=== PATIENT | female | born 1955 | race African-American/Black ===

== ENCOUNTER 2016-12-21 10:56 | Observation (INO) ==
[2016-12-21] MEDS ORDERED: SODIUM CHLORIDE 0.9% 1,000 ML IV STA (12:01)
--- NOTE | 2016-12-21 12:05 | EKG Report ---
Stationary ECG Study [facility] ER Test Date: 12/21/2016 11:22:18 AM Pat Name: NELLIE LEMONS Department: Room: Gender: F Electronic Wirer: Ally Smalls : 1955 Requested by: Kameron Healy Order Number: [id number] Reading MD: NOEMI NEVAREZ Intervals [place] Rate: 107 P: 70 NC: 176 QRS: 71 QRSD: 98 T: 28 QT: 339 QTc: 402 Interpretive Statements SINUS TACHYCARDIA NONSPECIFIC T WAVE ABNORMALITY Electronically Signed On 12-21-16 13:02:33 ACAD[employer]IC VICE PRESIDENT by NOEMI NEVAREZ [email or web address]
--- NOTE | 2016-12-21 12:13 | Emergency Department Note ---
Pranav Dickson Meredith, am scribing for, and in the presence of, Kameron Carr MD 12: 03. Lilly Dickson James D, MD, personally performed the services described in this documentation, ascribed by Rosy Rock in my presence, and it is both accurate and complete . Arrival - Arrival Chief Complaint: Syncope Stated Complaint: NEAR SYNCOPAL EPISODE ED Nursing Triage Note: reports had a syncopal episode in dr flynn office this am and was brought over here. reports fell on monday.reports some pain in right shoulder and top of head. Mode of Arrival: Wheelchair Limitations: No Limitations Source: Patient, Old Records Reviewed, RN Notes Reviewed Time Seen by Provider: 12/21/16 12:00 - History of Present Illness HPI Narrative: Pt is a 61 y/o black female reporting to the ED with c/o syncopal episode in Dr. Flynn's office this morning. She had another syncopal episode 3 days ago. Pt denies felling anything abnormal before the episode. She denies any chest pain, palpitations, shortness of breath, nausea, or vomiting. Pt does have some right shoulder pain and pain to the top of the head. She has a history of HTN, anxiety, depression, CVA, seizures, NIDDM, hemorrhoids, GERD, and anemia. Patient's son is concerned that she may be somewhat overmedicated. Onset (ago): hour(s) Consistency: now resolved Allergies/Adverse Reactions: Allergies Allergy/AdvReac Type Severity Reaction Status Date / Time iodine Allergy Mild RASH Verified 12/28/15 07:05 Home Medications: Home Medications Medication Instructions Recorded Confirmed Type Benztropine Tab [Cogentin Tab] 2 mg PO DAILY 12/16/15 02/01/16 History Diclofenac Sodium 75 mg PO DAILY 12/16/15 02/01/16 History Furosemide 20 mg PO DAILY 12/16/15 02/01/16 History Glimepiride [Amaryl] 4 mg PO DAILY W/BREAKFAST 12/16/15 02/01/16 History Magnesium Chloride [Slow Mag] 64 mg PO DAILY 12/16/15 02/01/16 History NIFEdipine XL TAB [Procardia Xl] 120 mg PO DAILY 12/16/15 02/01/16 History Sertraline [Zoloft] 100 mg PO DAILY 12/16/15 02/01/16 History clonazePAM [Klonopin] 1 mg PO DAILY 12/16/15 02/01/16 History glyBURIDE/METFORMIN 5-500 2 tablet PO BID 12/16/15 02/01/16 History [Glucovance 5-500] lamoTRIgine [LaMICtal Tab] 150 mg PO DAILY 12/16/15 02/01/16 History risperiDONE [Risperdal] 2 mg PO DAILY 12/16/15 02/01/16 History Ibuprofen Tab [Motrin Tab] 800 mg PO TID #20 tablet 10/30/16 Rx Review of System - Review of System 12 point system: reviewed and no additional remarkable complaints except as stated - Review of System Respiratory: Present: as per HPI. Absent: respiratory distress Cardiovascular: Present: as per HPI, syncope. Absent: chest pain, palpitations Gastrointestinal: Present: as per HPI. Absent: nausea, vomiting Musculoskeletal: Present: as per HPI, other (right shoulder pain and pain to the top of the head) Medical,Surgical,& Family Hx - Medical History Cardio: History of: Hypertension Psychological: History of: Anxiety Disorders, Depression Neurology: History of: Cerebrovascular Accident, Seizures HEENT: History of: Eye Problem (Reading Glasses/Cataracts), Dental Problems ( Partial Lower/Full Upper) Endocrine: History of: Diabetes Mellitus (NIDDM) Respiratory: History of: Respiratory Problems (SOB Occasionally; No Flu Vac- never has had) Gastrointestinal: History of: GERD, Hemorrhoids, GI Problems (Constipation) No history of: Polyps (?) Musculoskeletal: History of: Musculoskeletal Problems (Arthritis) Hematology: History of: Anemia (Years Ago) No history of: Blood Transfusion Reaction (With Childbirths) Other: No history of: Anesthesia Reactions, Cancer - Surgical History Cardiac Surgeries: Sugical HX of: Cardiac Catheterization (Negative) Neurologic Surgeries: Surgical HX of: Neurologic Surgery (Brain Tumor Removed 1996) HEENT Surgeries: Surgical HX of: Eye Surgery (12/28/15 Cataract Rt; 02/01/[address] Ren) Abdominal Surgeries: Surgical HX of: Abdominal Surgery, Colonoscopy Reproductive Surgeries: Surgical HX of;: Section (x3), Gynecologic Surgery Orthopedic Surgeries: Surgical HX of;: Orthopedic Surgery (CTR Rt/Lt) - Family History Family History: Denies;: Additional Family History - Social History Smoking Status: Smoker, status unknown Exam Physical Examination: GENERAL: This is a well-nourished, well-developed black female in no apparent distress. VITAL SIGNS: Temperature: 97.2, Pulse: 117, Respirations: 18, Blood pressure: 136/78, O2 Saturation: 98 HEENT: Head is normocephalic and atraumatic. Pupils are equally round and reactive to light. Extraocular movement are intact. Dry mucous membranes. NECK: Neck is soft and supple without tenderness. There are no masses. There is no lymphadenopathy. LUNGS: Lungs are clear to auscultation bilaterally. Chest rises symmetrically. There is no chest wall tenderness. CV: Heart is tachycardic and regular rhythm without murmurs, rubs, or gallops. ABDOMEN: Abdomen is soft, non-tender to palpation. There are no abnormal masses palpated. There is no organomegaly. Bowel sounds are present and active. SKIN: Skin is warm and dry. No rash. EXTREMITIES: Patient has full range of motion without tenderness. There is no pedal edema. NEUROLOGIC: Awake, alert, and oriented x4. Cranial nerves II through XII are grossly intact. There are no motorsensory deficits. PSYCHIATRIC: Normal affect. Normal mood. Vital Signs: Vital Signs Temperature 97.2 F L 12/21/16 11:10 Pulse Rate 102 H 12/21/16 12:50 Respiratory Rate 18 12/21/16 11:10 Blood Pressure 183/86 12/21/16 12:50 O2 Sat by Pulse Oximetry 98 12/21/16 11:10 Course - Consultations Consultation #1: Discussed with hospitalist. Patient will be admitted to their service. Time: 13:53 Results - Labs CBC & BMP: 12/21/16 12:42 12/21/16 12:42 Lab Results: I have reviewed the patients labs Labs: Laboratory Tests 12/21/16 12:42 WBC 7.8 RBC 3.91 Hgb 10.2 L Hct 32.6 L MCV 83.4 L MCH 26 L MCHC 31.3 L Plt Count 387 MPV 9.2 L Baso % (Auto) 0.9 H Laboratory Tests 12/21/16 12/21/16 12:42 12:58 INR 1.1 PT Patient/Control Mix 12.0 POC Glucose 222 H Laboratory Tests 12/21/16 12:42 Sodium 145 Potassium 4.2 Chloride 112 H Carbon Dioxide 21 Anion Gap 16.2 H BUN 21 H Creatinine 1.30 H Glucose 224 H Magnesium 1.7 L Troponin I < 0.015 Globulin 3.8 H Albumin/Globulin Ratio 0.9 L Laboratory Tests 12/21/16 12:42 Urine pH 5.0 Ur Specific [place] 1.020 Urine Protein 30 Urine Glucose (UA) >=500 Urine Urobilinogen < 2.0 H Urine RBC <1 Urine WBC <1 Ur Squamous Epith Cells Occasional Urine Bacteria Occasional Hyaline Casts 2 Urine Mucus Occasional - EKG EKG results: interpreted by ERMD - Diagnostic Findings Procedure: Chest x-ray: image reviewed by me (Normal chest x-ray. ), CT: report reviewed by me (CT head: No acute intracranial abnormality demonstrated. Chronic findings. ; C-spine: No convincing CT evidence of acute injury involving miladys osseous cervical spine. Degenerative chagne and malalignment or the cervical spine. ) Disposition Clinical Impression: Syncope Case discussed with: patient Disposition: Still a Patient Condition: Stable
--- NOTE | 2016-12-21 12:45 | CT Report ---
CT head/brain wo con Indication: Syncope Comparison: CT brain dated August 14, 2013 Technique: Multiple axial tomographic images of the brain were obtained without the use of intravenous contrast. Findings: Midline structures are nondisplaced. There is no acute intracranial hemorrhage or evidence of hydrocephalus. Moderate cystic encephalomalacia again demonstrated along the inferolateral right temporal lobe, unchanged. Suggestion of prior right frontotemporal craniotomy. Senescent mineralization of the basal ganglia. Mild periventricular and subcortical hypoattenuation noted which is nonspecific but consistent with chronic microvascular ischemic change. Paranasal sinuses and mastoid air cells are clear. IMPRESSION: No acute intracranial abnormality demonstrated. Chronic findings as detailed above. PROCEDURE INTERPRETED AT [facility] DEPARTMENT OF RADIOLOGY Final Report Signed by: Dr Varinder Paulino
[2016-12-21 12:50] LABS: Basophils # 0.1 10*3/uL (0.0-0.2); Basophils % 0.9 % (0.0-0.8); Eosinophils # 0.2 10*3/uL (0.0-0.87); Eosinophils % 2.6 % (0.00-10.9); Hematocrit 32.6 VOL% (35.7-47.0); Hemoglobin 10.2 GM/DL (12.0-16.0); Immature Granulocytes % 0.5 %; Immature Granulocytes Absolute 0.04 #; Lymphocytes # 2.3 10*3/uL (1.4-4.0); Lymphocytes % 29.9 % (21.3-54.2); Mean Corpuscular HGB Conc 31.3 GM/DL (32-36); Mean Corpuscular Hemoglobin 26 PG (27-34); Mean Corpuscular Volume 83.4 FL (87-102); Mean Platelet Volume 9.2 FL (9.6-12.0); Monocytes # 0.5 10*3/uL (0.11-0.8); Monocytes % 5.8 % (1.7-12.7); Neutrophils # 4.7 10*3/uL (1.4-7.4); Neutrophils % 60.3 % (38.7-73.9); Platelet Count 387 T/CUMM (130-400); Red Blood Count 3.91 MC/CUMM (3.8-5.5); Red Cell Distribution Width 15.4 % (9.3-17.3); White Blood Count 7.8 T/CUMM (4-12)
--- NOTE | 2016-12-21 12:50 | CT Report ---
CT cervical spine wo con Indication: Syncope Comparison: None Technique: Multiple axial tomographic images of the cervical spine were obtained without the use of intravenous contrast. Coronal and sagittal reformatted images provided. Findings: Straightening of normal cervical lordosis which may be positional or secondary to muscle spasm. 2 mm anterolisthesis of C3 upon C4 and C4 upon C5. Multilevel posterior facet arthropathy, greatest on the right at C4-5 where there is subchondral cystic change. Multilevel uncovertebral joint hypertrophy. Vertebral body heights are maintained. Atherosclerotic chronic calcifications noted bilaterally. IMPRESSION: No convincing CT evidence of acute injury involving the osseous cervical spine. Degenerative change and malalignment of the cervical spine as detailed above. PROCEDURE INTERPRETED AT [facility] DEPARTMENT OF RADIOLOGY Final Report Signed by: Dr Varinder Paulino
[2016-12-21 13:00] LABS: INR 1.1
--- NOTE | 2016-12-21 13:31 | XRay Report ---
XR chest 1V portable Indication: Syncope Comparison: None available Findings: The heart and mediastinum are normal in size and configuration. The pulmonary vascularity is normal in caliber. No lung infiltrates, effusions, pneumothorax or other abnormality is demonstrated. Impression: Normal chest x-ray PROCEDURE INTERPRETED AT [facility] DEPARTMENT OF RADIOLOGY Final Report Signed by: Dr. Cruz Gomez
[2016-12-21 13:32] LABS: Alanine Aminotransferase 15 U/L (13-56); Albumin 3.5 G/DL (3.4-5.0); Alkaline Phosphatase 99 U/L (45-117); Apearance,Urine Slightly Hazy (Clear); Aspartate Amino Transferase 7 U/L (0-37); Bacteria,Urine Occasional /HPF (Few); Bilirubin,Total < 0.39 MG/DL (0.2-1.0); Bilirubin,Urine Negative (Negative); Blood Urea Nitrogen 21 MG/DL (7-18); Blood, Urine Negative (Negative); Calcium 9.6 MG/DL (8.5-10.1); Glucose 224 MG/DL (74-106); Glucose,Urine (UA) >=500 mg/dL (Negative); Hyaline Casts,Urine 2 /LPF (0-3); Ketones,Urine Negative (Negative); Magnesium 1.7 MG/DL (1.8-2.4); Mucus,Urine Occasional /LPF (Occasional); Nitrite,Urine Negative (Negative); Osmolality,Calculated 297.7 MOS/KG (273-304); Potassium 4.2 MMOL/L (3.5-5.1); Protein,Urine 30 MG/DL; RBC,Urine <1 /HPF (0-4); Sodium 145 MMOL/L (136-145); Squamous Epithelial Cell,Urine Occasional /HPF (0-10); Total Protein 7.3 G/DL (6.4-8.3); Troponin I Only < 0.015 NG/ML (0.00-0.045); Urine Color Yellow (Yellow); Urine Urobilinogen < 2.0 EU/DL (0.2-1.0); WBC,Urine <1 /HPF (0-6)
[2016-12-21] MEDS ORDERED: ONDANSETRON 4 MG/2 ML VIAL IV PRN (14:08)
[2016-12-21] MEDS ORDERED: GLUCAGON 1 MG VIAL IM PRN (14:08)
[2016-12-21] MEDS ORDERED: DEXTROSE 50% 25 GM/50 ML VIAL IV PRN (14:08)
[2016-12-21] MEDS ORDERED: LACTULOSE 20 GM/30 ML UDCUP PO PRN (14:08)
[2016-12-21] MEDS ORDERED: MORPHINE 2 MG/1 ML SYRINGE IV PRN (14:08)
[2016-12-21] MEDS ORDERED: ACETAMINOPHEN 325 MG TABLET PO PRN (14:08)
--- NOTE | 2016-12-21 14:57 | Hospitalist History & Physical ---
Assessment and Plan - Time spent with patient Time spent with patient: Greater than 30 minutes (1) Syncope Status: Acute Assessment and plan: admit to monitored bed hydrate well check TSH cardiology consult orthostatic vitals daily monitor electrolytes thoroughly evaluate pt's medication and continue discussion on medication compliance- defer med rec to Dr. Sanderson PRN meds routine labs in AM DVT prophylaxis further plan and addendum to follow per Dr. Sanderson Current Visit: Yes History of Present Illness Chief complaint: syncope History of present illness: Ms. Kasper is a 61 year old female who presents to the ER today from Dr. Flynn's office. She tells me that she made an appointment with Dr. Flynn after she had a "fall" on Monday. 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 She denies having any chest pain, shortness of breath, palpitations, dizziness, lightheadedness, nausea or pain prior too or after the fall. 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 She denies recent illness, denies any recent chest pain or shortness of breath. She went to Dr. Winslow today and was in the waiting room when she tells me that she had another fall that was exactly like the episode on Monday. She was brought to the ER. After speaking with staff at Dr. Flynn's office, her episode was unwitnessed with staff and it is unclear whether vitals were done or not. She states she feels well at present. Pt is being managed by Orthopedics for problems with her knees and is to have a knee replacement, she also sees pain management for her knees and back. She says it is possible that her knees went out from under her but she cant remember. Pt also tells us that she missed breakfast and her home meds the mornings of both episodes. Her son is at bedside and is very thorough. he states that she has had a several month history of medication and diet non compliance, seeing several doctors and altering her own prescription meds. Ms. Styles has a PMH of HTN, anxiety, depression, CVA, seizures, DM, hemorrhoids , GERD, and anemia. PSH of bilat knee scopes, cardiac cath, brain tumor removed in , cataracts, . She does not smoke or drink. Home Medications Medication Instructions Recorded Confirmed Type Benztropine Tab [Cogentin Tab] 2 mg PO DAILY 12/16/15 12/21/16 History Diclofenac Sodium 75 mg PO DAILY 12/16/15 12/21/16 History Furosemide 20 mg PO DAILY 12/16/15 12/21/16 History Sertraline [Zoloft] 150 mg PO DAILY 12/16/15 12/21/16 History clonazePAM [Klonopin] 1 mg PO QPM 12/16/15 12/21/16 History glyBURIDE/METFORMIN 5-500 2 tablet PO BID 12/16/15 12/21/16 History [Glucovance 5-500] lamoTRIgine [LaMICtal Tab] 150 mg PO DAILY 12/16/15 12/21/16 History Metoprolol Succinate Xl [Toprol Xl] 100 mg PO DAILY 12/21/16 12/21/16 History Nifedipine [Nifedical Xl] 60 mg PO DAILY 12/21/16 12/21/16 History Nifedipine [Nifedipine ER] 90 mg PO DAILY 12/21/16 12/21/16 History Nortriptyline [Pamelor] 50 mg PO DAILY 12/21/16 12/21/16 History OLANZapine [Olanzapine] 15 mg PO DAILY 12/21/16 12/21/16 History risperiDONE [Risperidone] 2 mg PO BEDTIME 12/21/16 12/21/16 History sitaGLIPtin [Januvia] 100 mg PO DAILY 12/21/16 12/21/16 History Allergies Allergy/AdvReac Type Severity Reaction Status Date / Time iodine Allergy Mild RASH Verified 12/28/15 07:05 Medical,Surgical,& Family Hx - Medical History Cardio: History of: Hypertension Psychological: History of: Anxiety Disorders, Depression Neurology: History of: Cerebrovascular Accident, Seizures HEENT: History of: Eye Problem (Reading Glasses/Cataracts), Dental Problems ( Partial Lower/Full Upper) Endocrine: History of: Diabetes Mellitus (NIDDM) Respiratory: History of: Respiratory Problems (SOB Occasionally; No Flu Vac- never has had) Gastrointestinal: History of: GERD, Hemorrhoids, GI Problems (Constipation) No history of: Polyps (?) Musculoskeletal: History of: Musculoskeletal Problems (Arthritis) Hematology: History of: Anemia (Years Ago) No history of: Blood Transfusion Reaction (With Childbirths) Other: No history of: Anesthesia Reactions, Cancer - Surgical History Cardiac Surgeries: Sugical HX of: Cardiac Catheterization (Negative) Neurologic Surgeries: Surgical HX of: Neurologic Surgery (Brain Tumor Removed 1996) HEENT Surgeries: Surgical HX of: Eye Surgery (12/28/15 Cataract Rt; 02/01/[address] Ren) Abdominal Surgeries: Surgical HX of: Abdominal Surgery, Colonoscopy Reproductive Surgeries: Surgical HX of;: Section (x3), Gynecologic Surgery Orthopedic Surgeries: Surgical HX of;: Orthopedic Surgery (CTR Rt/Lt) - Family History Family History: Denies;: Additional Family History - Social History Smoking Status: Former smoker Frequency of Alcohol Use: None Type of Drug Use: None Marital Status: Lives With:: Spouse Functional capacity: independent ambulation 12 point system: reviewed and no additional remarkable complaints except as stated Exam - Constitutional Vitals: Period Temp Pulse Resp BP Sys/Coello Pulse Ox Last 24 Hr 97.2 F-97.2 F 100-117 18-20 136-183/78-96 98-100 General appearance: no acute distress - Head Head exam: Present: normal inspection, normocephalic - Eye Eye exam: Present: EOMI. Absent: scleral icterus Pupils: Present: MARIE, normal accommodation - ENT ENT exam: Present: normal exam, normal oropharynx - Neck Neck exam: Present: normal inspection. Absent: lymphadenopathy - Respiratory Respiratory exam: Present: clear to auscultation bilaterally. Absent: wheezes - Cardiovascular Cardiovascular exam: Present: regular rate and rhythm. Absent: tachycardia - GI/Abdominal GI/Abdominal exam: Present: normal bowel sounds, soft. Absent: tenderness - Extremities Exam Extremities exam: Present: normal inspection, full ROM. Absent: edema - Back Exam Back exam: Present: normal inspection. Absent: muscle spasm - Neurological Exam Neurological exam: Present: alert, oriented X3, CN II-XII intact, reflexes normal, other (pt has some delayed thinking and response time). Absent: motor sensory deficit - Psychiatric Psychiatric exam: Present: normal affect, normal mood - Skin Skin exam: Present: normal color, warm, dry Results - Labs CBC & BMP: 12/21/16 12:42 12/21/16 12:42 Lab Results: I have reviewed the past 24 hour labs
[2016-12-21] MEDS ORDERED: hydrALAZINE 20 MG/1 ML VIAL IV PRN (15:02)
[2016-12-21 16:30] LABS: Folate > 24.0 NG/ML (5.4-24.0); Vitamin B12 766 PG/ML (211-911)
[2016-12-21 16:41] LABS: Basophils # 0.1 10*3/uL (0.0-0.2); Basophils % 0.6 % (0.0-0.8); Eosinophils # 0.2 10*3/uL (0.0-0.87); Eosinophils % 2.4 % (0.00-10.9); Hemoglobin 9.5 GM/DL (12.0-16.0); Immature Granulocytes % 0.2 %; Immature Granulocytes Absolute 0.02 #; Lymphocytes # 2.8 10*3/uL (1.4-4.0); Mean Corpuscular HGB Conc 31.7 GM/DL (32-36); Mean Corpuscular Hemoglobin 26 PG (27-34); Mean Platelet Volume 9.3 FL (9.6-12.0); Monocytes # 0.5 10*3/uL (0.11-0.8); Monocytes % 6.4 % (1.7-12.7); Neutrophils # 4.5 10*3/uL (1.4-7.4); Neutrophils % 55.4 % (38.7-73.9); Platelet Count 379 T/CUMM (130-400); Red Blood Count 3.66 MC/CUMM (3.8-5.5); Red Cell Distribution Width 15.4 % (9.3-17.3); White Blood Count 8.1 T/CUMM (4-12)
[2016-12-21] MEDS ORDERED: MAGNESIUM SULF RIDER 1 GM in PREMIX 1 EACH IV ONE (17:00)
[2016-12-21] MEDS: SODIUM CHLORIDE 0.9% 1,000 ML IV SCH (17:25)
[2016-12-21] MEDS: INSULIN LISPRO 100 UNIT/ML SUBCUT SCH ×2 (17:26→22:23)
[2016-12-21 17:45] LABS: Sedimentation Rate-Westergren 77 MM/HR (0-30)
[2016-12-21] MEDS ORDERED: clonazePAM 0.5 MG TABLET PO SCH (19:00)
[2016-12-21] MEDS ORDERED: ENOXAPARIN 40 MG/0.4 ML SYRINGE SUBCUT SCH (21:00)
[2016-12-21] MEDS ORDERED: METOPROLOL TARTRATE 25 MG TABLET PO SCH (21:00)
[2016-12-21] MEDS: glyBURIDE/METFORMIN 5-500 MG TABLET PO SCH (22:21)
[2016-12-22 06:54] LABS: Basophils # 0.1 10*3/uL (0.0-0.2); Basophils % 0.7 % (0.0-0.8); Eosinophils # 0.2 10*3/uL (0.0-0.87); Eosinophils % 2.5 % (0.00-10.9); Hematocrit 30.6 VOL% (35.7-47.0); Hemoglobin 9.6 GM/DL (12.0-16.0); Immature Granulocytes % 0.2 %; Immature Granulocytes Absolute 0.02 #; Lymphocytes # 2.5 10*3/uL (1.4-4.0); Mean Corpuscular HGB Conc 31.4 GM/DL (32-36); Mean Corpuscular Hemoglobin 26 PG (27-34); Mean Corpuscular Volume 81.6 FL (87-102); Mean Platelet Volume 9.5 FL (9.6-12.0); Monocytes # 0.5 10*3/uL (0.11-0.8); Monocytes % 5.9 % (1.7-12.7); Neutrophils # 4.8 10*3/uL (1.4-7.4); Neutrophils % 59.7 % (38.7-73.9); Platelet Count 399 T/CUMM (130-400); Red Blood Count 3.75 MC/CUMM (3.8-5.5); Red Cell Distribution Width 15.5 % (9.3-17.3)
[2016-12-22 07:14] LABS: Hemoglobin A1 (Alkaline) 97.5 % (96.5-98.5); Hemoglobin A2 (Alkaline) 2.5 % (1.5-3.5)
[2016-12-22] MEDS: SODIUM CHLORIDE 0.9% 1,000 ML IV SCH (07:17)
[2016-12-22 07:23] LABS: Albumin 3.2 G/DL (3.4-5.0); Bilirubin,Total 0.4 MG/DL (0.2-1.0); Calcium 9.1 MG/DL (8.5-10.1); Potassium 4.2 MMOL/L (3.5-5.1)
[2016-12-22] MEDS ORDERED: glyBURIDE/METFORMIN 5-500 MG TABLET PO SCH (08:00)
[2016-12-22] MEDS ORDERED: METOPROLOL SUCCINATE XL 100 MG TABLET PO SCH (09:00)
[2016-12-22] MEDS ORDERED: FUROSEMIDE 20 MG TABLET PO SCH (09:00)
[2016-12-22] MEDS ORDERED: PANTOPRAZOLE 40 MG TABLET PO SCH (09:00)
[2016-12-22] MEDS ORDERED: METOPROLOL SUCCINATE XL 50 MG TABLET PO SCH (09:00)
[2016-12-22] MEDS ORDERED: SERTRALINE 100 MG TABLET PO SCH (09:00)
[2016-12-22] MEDS ORDERED: amLODIPine 10 MG TABLET PO SCH (09:00)
[2016-12-22] MEDS ORDERED: lamoTRIgine 100 MG TABLET PO SCH (09:00)
[2016-12-22] MEDS ORDERED: BENZTROPINE 1 MG TABLET PO SCH (09:00)
[2016-12-22] MEDS ORDERED: sitaGLIPtin 100 MG TABLET PO SCH (09:00)
[2016-12-22] MEDS: INSULIN LISPRO 100 UNIT/ML SUBCUT SCH ×3 (09:06→16:03)
[2016-12-22] MEDS: glyBURIDE/METFORMIN 5-500 MG TABLET PO SCH (09:08)
--- NOTE | 2016-12-22 16:12 | Discharge Summary ---
Hospital Course - Hospital Course Hospital Course: Mrs Kasper came with a fall at DR Flynn's office. She was monitored and had no arrhythmia. She was not orthostatic. Her neuro exam was normal other than lip/tongue smacking that has been present for several years. She denied hearing voices at this time, (though she was when she saw Dr Flynn in November- he increased her risperdal), and denied depressed mood. Her medicine list was long and there were many duplicates. Her son is going to straighten it out. She has a very concerned son who wants her to move to to [place] with him but she is resistant. She is very noncompliant with her meds which she admits. She has arthritis in her knees and falls related to that. Dr Garcia did not feel further cardiology eval was warranted at this time, and recommends that she see a psychiatrist for ehr schizophrenia since she hasn't seen one in 3 years. She will see her PCp and counselor/psychiatrist in follow up. She plans to move to [place] in 2 weeks. - Time spent with patient Time with patient DS: Greater than 30 minutes (care coordination, discharge planning, medicine reconciliation.) Diagnosis - Discharge Diagnosis (1) Fall Status: Acute (2) Diabetes mellitus Status: Chronic (3) GERD (gastroesophageal reflux disease) Status: Chronic (4) History of seizures Status: Chronic (5) Hypertension Status: Chronic (6) Medically noncompliant Status: Chronic (7) Schizophrenia Status: Chronic Specialty Discharge - Follow Up or Referrals Follow up with: Karthikeyan Alamo MD [Physician] - 2 Weeks (Follow up with Dr. Alamo in 2 weeks. ) Your, psychiatrist [Other] (1 week) Woodrow Flynn MD [Physician] - 5 Days Discharge Plan - Discharge Data Disposition: Home Health Service Condition at Discharge: Stable Discharge Diet: diabetic diet, heart healthy Activity: resume usual activities as tolerated - Discharge Medications Continue Sertraline [Zoloft] 150 mg PO DAILY Furosemide 20 mg PO DAILY Diclofenac Sodium 75 mg PO DAILY glyBURIDE/METFORMIN 5-500 [Glucovance 5-500] 2 tablet PO BID lamoTRIgine [LaMICtal Tab] 150 mg PO DAILY clonazePAM [Klonopin] 1 mg PO QPM Benztropine Tab [Cogentin Tab] 2 mg PO DAILY Nifedipine [Nifedical Xl] 60 mg PO DAILY risperiDONE [Risperidone] 2 mg PO BEDTIME Metoprolol Succinate Xl [Toprol Xl] 100 mg PO DAILY Discontinued Nortriptyline [Pamelor] 50 mg PO DAILY OLANZapine [Olanzapine] 15 mg PO DAILY sitaGLIPtin [Januvia] 100 mg PO DAILY Nifedipine [Nifedipine ER] 90 mg PO DAILY - Follow Up or Referral Follow Up: Your, psychiatrist [Other] (1 week) Woodrow Flynn MD [Physician] - 5 Days Karthikeyan Alamo MD [Physician] - 2 Weeks (Follow up with Dr. Alamo in 2 weeks. ) - Forms/Instructions Instructions: Diabetic Hypoglycemia (DC), Diabetes Mellitus Type 2 in Adults ( GEN), Generalized Anxiety Disorder (DC), Gastroesophageal Reflux Disease (DC) Additional Discharge Instructions: Let home health help you straighten out your medicines. Check your blood sugars and blood pressure- you may need less medicine than prescribed once you are taking it regularly. Watch for low blood sugar. Exam - Constitutional Vitals: Period Temp Pulse Resp BP Sys/Coello Pulse Ox Last 24 Hr 97.7 F-980 F 60-112 18-22 114-158/73-90 94-95 General appearance: no acute distress, over weight - Head Head exam: Present: normocephalic, atraumatic - Eye Eye exam: Present: EOMI. Absent: scleral icterus Pupils: Present: MARIE - Respiratory Respiratory exam: Present: clear to auscultation bilaterally - Cardiovascular Cardiovascular exam: Present: regular rate and rhythm - GI/Abdominal GI/Abdominal exam: Present: normal bowel sounds, soft. Absent: tenderness - Extremities Exam Extremities exam: Present: other (narrowed joint space on both knees, no effusions or heat). Absent: edema - Neurological Exam Neurological exam: Present: alert, oriented X3 - Skin Skin exam: Present: warm, dry Discharge Results Labs on day of discharge: Labs from last 24 hours 12/22/16 12/22/16 12/22/16 15:24 11:42 07:38 WBC RBC Hgb Hct MCV MCH MCHC RDW Plt Count MPV Neut % (Auto) Lymph % (Auto) Stanton % (Auto) Eos % (Auto) Baso % (Auto) Neut # (Auto) Lymph # (Auto) Stanton # (Auto) Eos # (Auto) Baso # (Auto) Immature Gran % Nucleated RBC % Immature Gran # Nucleated RBCs # Anemia Panel Interp ESR Westergren Absolute Retic Percent Retic Retic Hgb Equivalent Sodium Potassium Chloride Carbon Dioxide Anion Gap BUN Creatinine GFR Calculation BUN/Creatinine Ratio Glucose POC Glucose 117 H 134 H 173 H Calculated Osmolality Calcium Total Bilirubin AST ALT Alkaline Phosphatase Troponin I Total Protein Albumin Globulin Albumin/Globulin Ratio 12/22/16 12/22/16 12/22/16 05:27 05:27 05:27 WBC 8.0 RBC 3.75 L Hgb 9.6 L Hct 30.6 L MCV 81.6 L MCH 26 L MCHC 31.4 L RDW 15.5 Plt Count 399 MPV 9.5 L Neut % (Auto) 59.7 Lymph % (Auto) 31.0 Stanton % (Auto) 5.9 Eos % (Auto) 2.5 Baso % (Auto) 0.7 Neut # (Auto) 4.8 Lymph # (Auto) 2.5 Stanton # (Auto) 0.5 Eos # (Auto) 0.2 Baso # (Auto) 0.1 Immature Gran % 0.2 Nucleated RBC % 0.0 Immature Gran # 0.02 Nucleated RBCs # 0.00 Anemia Panel Interp ESR Westergren Absolute Retic Percent Retic Retic Hgb Equivalent Sodium 143 Potassium 4.2 Chloride 109 H Carbon Dioxide 24 Anion Gap 14.2 BUN 15 Creatinine 1.00 GFR Calculation 73 BUN/Creatinine Ratio 15.00 Glucose 204 H POC Glucose Calculated Osmolality 291.0 Calcium 9.1 Total Bilirubin 0.40 AST 8 ALT 15 Alkaline Phosphatase 96 Troponin I < 0.015 Total Protein 7.0 Albumin 3.2 L Globulin 3.8 H Albumin/Globulin Ratio 0.8 L 12/22/16 12/22/16 12/21/16 01:21 00:31 20:35 WBC RBC Hgb Hct MCV MCH MCHC RDW Plt Count MPV Neut % (Auto) Lymph % (Auto) Stanton % (Auto) Eos % (Auto) Baso % (Auto) Neut # (Auto) Lymph # (Auto) Stanton # (Auto) Eos # (Auto) Baso # (Auto) Immature Gran % Nucleated RBC % Immature Gran # Nucleated RBCs # Anemia Panel Interp ESR Westergren Absolute Retic Percent Retic Retic Hgb Equivalent Sodium Potassium Chloride Carbon Dioxide Anion Gap BUN Creatinine GFR Calculation BUN/Creatinine Ratio Glucose POC Glucose 132 H 48 L* Calculated Osmolality Calcium Total Bilirubin AST ALT Alkaline Phosphatase Troponin I < 0.015 Total Protein Albumin Globulin Albumin/Globulin Ratio 12/21/16 12/21/16 12/21/16 18:54 16:29 16:29 WBC 8.1 RBC 3.66 L Hgb 9.5 L Hct 30.0 L MCV 82.0 L MCH 26 L MCHC 31.7 L RDW 15.4 Plt Count 379 MPV 9.3 L Neut % (Auto) 55.4 Lymph % (Auto) 35.0 Stanton % (Auto) 6.4 Eos % (Auto) 2.4 Baso % (Auto) 0.6 Neut # (Auto) 4.5 Lymph # (Auto) 2.8 Stanton # (Auto) 0.5 Eos # (Auto) 0.2 Baso # (Auto) 0.1 Immature Gran % 0.2 Nucleated RBC % 0.0 Immature Gran # 0.02 Nucleated RBCs # 0.00 Anemia Panel Interp See comment ESR Westergren 77 H Absolute Retic 0.1 Percent Retic 1.8 H Retic Hgb Equivalent 28.7 Sodium Potassium Chloride Carbon Dioxide Anion Gap BUN Creatinine GFR Calculation BUN/Creatinine Ratio Glucose POC Glucose 208 H Calculated Osmolality Calcium Total Bilirubin AST ALT Alkaline Phosphatase Troponin I < 0.015 Total Protein Albumin Globulin Albumin/Globulin Ratio 12/21/16 16:04 WBC RBC Hgb Hct MCV MCH MCHC RDW Plt Count MPV Neut % (Auto) Lymph % (Auto) Stanton % (Auto) Eos % (Auto) Baso % (Auto) Neut # (Auto) Lymph # (Auto) Stanton # (Auto) Eos # (Auto) Baso # (Auto) Immature Gran % Nucleated RBC % Immature Gran # Nucleated RBCs # Anemia Panel Interp ESR Westergren Absolute Retic Percent Retic Retic Hgb Equivalent Sodium Potassium Chloride Carbon Dioxide Anion Gap BUN Creatinine GFR Calculation BUN/Creatinine Ratio Glucose POC Glucose 127 H Calculated Osmolality Calcium Total Bilirubin AST ALT Alkaline Phosphatase Troponin I Total Protein Albumin Globulin Albumin/Globulin Ratio DS: Provider Date of admission: 12/21/16 14:08 Primary care physician: . No PCP Attending physician on admission: Shy Sanderson MD Consults: 12/21/16 16:07 Consult to Pharmacy [CONS] Routine Reason for Pharmacy Consult: Adjust Meds Renal Funct Discharging clinician: Shy Sanderson MD
[2016-12-22 16:13] VITALS: BP 161/86
--- NOTE | 2016-12-22 17:42 | Cardiology Consult Note ---
I, Leah Kaur RN, am scribing for, and in the presence of, Adriel Garcia MD 17:31. Assessment and Plan - Time spent with patient Time spent with patient: Greater than 30 minutes (due to assessment, plan, documentation, and further discussion with attending physician) (1) Syncope Status: Acute Assessment and plan: During Monday's fall, it does not sound as if she lost consciousness. Yesterday , she is unsure whether she lost consciousness. We will check an echocardiogram. She has felt occasional heart racing. If discharged today, we could send her home with a 30-day holter monitor to rule out arrhythmias. It is certainly questionable that this patient really has syncope. Certainly some of medications can have side effects and taking them on an empty stomach or not eating and taking some her other medications can cause issues. I think that we should not carry out further cardiac evaluation at this time especially since his son is planning on trying to move her within the next one to 2 weeks to his home. She has recurrent symptomatology and we will need to Further evaluation. The son is going to attempt to make arrangements section she is eating and is someone we'll make sure she is eating and taking her medicines appropriately. If she has recurrent episodes even after going home inserted she can be evaluated an outpatient. Dr. Alamo has seen her previously. I discussed this case with Dr. Sanderson. Current Visit: Yes (2) Medically noncompliant Status: Acute Assessment and plan: Over the last several months, she has been noncompliant with diet and medications. Prior to her fall Monday, she reports she didn't eat or take her medications. Prior to yester's event, she reports she thinks she ate breakfast but doesn't remember taking her medications. human services professional has been consulted to aid with set up of home health prior to discharge. I believe her son Adriel wishes for her to move closer to him so he can take a more proactive role in her healthcare. She currently lives with her who is not home much from what I understand. I discussed with her at length the potentially life threatening adverse outcomes of not taking her medications or eating appropriately. She voiced understanding but I do feel it would be best for her to be near family that could watch over her. Current Visit: Yes (3) Schizophrenia Status: Acute Assessment and plan: She reports last hearing voices 2 weeks ago but is unable to tell me what they were saying. She has been fixated on recently but denies thoughts of harming herself or others. She tells me it has been about 3 years since she has seen a psychiatrist. Following discharge, I believe it would be of great benefit for her to follow up as an outpatient with a psychiatrist for re- evaluation. Current Visit: Yes (4) Hypertension Status: Acute Assessment and plan: Mildly elevated this hospitalization. History of medical noncompliance. She may require further adjustments but this may be done on an outpatient basis with Dr. Alamo. Current Visit: Yes (5) Diastolic congestive heart failure Status: Acute Assessment and plan: We will review echocardiogram. Certainly echocardiogram with moderate concentric left ventricular hypertrophy and normal systolic function. Current Visit: Yes (6) Diabetes mellitus Status: Acute Assessment and plan: Hemoglobin A1C 10.0. History of noncompliance with diet and medication. Hospital medicine following. Current Visit: Yes (7) Anxiety and depression Status: Acute Assessment and plan: Hospital medicine following. Current Visit: Yes (8) History of seizures Status: Acute Current Visit: Yes (9) GERD (gastroesophageal reflux disease) Status: Acute Assessment and plan: Stable. Continue current plan of care. Current Visit: Yes (10) Anemia Status: Acute Assessment and plan: Hospital medicine following. Current Visit: Yes (11) History of CVA (cerebrovascular accident) Status: Chronic Current Visit: Yes History of Present Illness - Data of Consult Patient: known to practice within the last 3 years (Patient of Dr. Alamo) Consult date: 12/22/16 Requesting Physician: Shy Sanderson Primary care physician: Woodrow Flynn - Consult Narrative Reason for consult: syncope History of present illness: Ms. Kasper is a 61 year old female who is routinely followed by Dr. Alamo. Her primary care provider is Dr. Flynn. She has a history of chronic diastolic congestive heart failure, hypertension, atypical chest pain, non-insulin dependent diabetes mellitus, anxiety, depression, prior CVA, seizures, gastroesophageal reflux disease, anemia, and schizophrenia. She has risk factors significant for: diabetes, hypertension, obesity, sedentary lifestyle. She had resection of a meningioma in 1996. She also has chronic pain in her knees and back and has a history of medical and dietary noncompliance. She presented to the hospital yesterday after a questionable syncopal event. This is her second fall within a week's time. 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 She reports she did not lose consciousness at that time but does not remember eating or taking her medications that day. Yesterday, she was in the doctor's waiting room when she fell. This was not witnessed by medical personnel, but she reports she thinks she ate breakfast but again, does not remember taking her medications. Her responses to questions are somewhat delayed, but she does not think she lost consciousness on either occasion. She denies loss of bowel or bladder function and did not bite her tongue or cheek. She saw Dr. Flynn two weeks ago and reported to him that she was hearing voices and he increased her dose of Risperidone. She has also recently been fixated on and situations which may cause but denies thoughts of harming herself or others. She also denies hearing voices tell her to harm herself or others. She reports no recent symptoms of chest pain, shortness of breath, diaphoresis, dizziness, lightheadedness, nausea, vomiting, fever, or chills. She reports she has felt her heart racing occasionally when she has been walking. She previously had a cardiolyte stress test done 12/24/14 which revealed an ejection fraction of 57% and was negative for ischemia. Her head CT was negative for acute hemorrhage or hydrocephalus. C-Spine CT was negative for acute injury. EKG shows sinus tachycardia with non-specific T-wave abnormalities. Her troponins are negative. Hemoglobin A1C was found to be 10.0. Creatinine is 1.0. Potassium 4.2, Magnesium 1.7 yesterday. Her TSH and free T4 were normal. An echocardiogram has been ordered for today. Discussion the situation with the son as well as reviewing the chart the patient changes her story from interviewer to interviewer. The son states that she doesn't eat right and she will take her medicines on an empty stomach or she doesn't eat and doesn't take her medications and at times feels nauseous and will take her medications then her when she feels back she thinks taking more medication make her feel better. Certainly. She's had no abnormalities of cardiac dysrhythmia. She's had some bright sinus tachycardia. Her echocardiogram is unremarkable other left ventricular hypertrophy and mild diastolic dysfunction. Lower with some anemia but normal troponins that are actually undetectable. Her son is in her try to get her to move closer to him. Also he is going to try were with her and home health to try to get to where his mother i.e. the patient is eating better and taking her medicines on a more routine schedule. CC: Shy Sanderson MD - Home Medications and Allergies Home Medications: Home Medications Medication Instructions Recorded Confirmed Type Benztropine Tab [Cogentin Tab] 2 mg PO DAILY 12/16/15 12/21/16 History Diclofenac Sodium 75 mg PO DAILY 12/16/15 12/21/16 History Furosemide 20 mg PO DAILY 12/16/15 12/21/16 History Sertraline [Zoloft] 150 mg PO DAILY 12/16/15 12/21/16 History clonazePAM [Klonopin] 1 mg PO QPM 12/16/15 12/21/16 History glyBURIDE/METFORMIN 5-500 2 tablet PO BID 12/16/15 12/21/16 History [Glucovance 5-500] lamoTRIgine [LaMICtal Tab] 150 mg PO DAILY 12/16/15 12/21/16 History Metoprolol Succinate Xl [Toprol Xl] 100 mg PO DAILY 12/21/16 12/21/16 History Nifedipine [Nifedical Xl] 60 mg PO DAILY 12/21/16 12/21/16 History risperiDONE [Risperidone] 2 mg PO BEDTIME 12/21/16 12/21/16 History Allergies/Adverse Reactions: Allergies Allergy/AdvReac Type Severity Reaction Status Date / Time iodine Allergy Mild RASH Verified 12/28/15 07:05 - Constitutional Constitutional: Present: fatigue, frequent falls. Absent: anorexia, chills, daytime sleepiness, excessive sweating, fever(s), headache(s), increased appetite, lethargy, malaise, night sweats, stops breathing during sleep, weakness, weight gain, weight loss - EENT Eyes: Absent: blurry vision, diplopia, loss of vision Ears: Absent: decreased hearing, ear discharge, ear pain Nose, mouth and throat: Absent: dysphagia, epistaxis, headache(s), hoarseness, lip swelling, nasal congestion, neck mass, neck pain, sinus pressure, sore throat, throat swelling, tongue swelling, vertigo - Cardiovascular Cardiovascular: Present: as per HPI, chest pain at rest (history of atypical CP , but no CP during or prior to falls ), palpitations (reports occasional heart racing when she is up walking). Absent: chest pain with activity, claudication , diaphoresis, dyspnea, dyspnea on exertion, edema, radiating jaw, neck or arm pain, lightheadedness, orthopnea - Respiratory Respiratory: Present: as per HPI. Absent: cough, dyspnea, hemoptysis, dyspnea on exertion, wheezing, snoring, pain on inspiration - Gastrointestinal Gastrointestinal: Absent: abdominal pain, constipation, diarrhea, dysphagia, heartburn, hematemesis, hematochezia, loose stools, melena, nausea, vomiting - Genitourinary Genitourinary: Absent: difficulty urinating, dysuria, flank pain, hematuria, urinary frequency, urinary hesitancy, urinary incontinence - Musculoskeletal Musculoskeletal: Present: back pain (chronic), other (chronic bilateral knee pain). Absent: arthralgias, joint swelling, limited range of motion, muscle cramps, muscle weakness, myalgias - Neurological Neurological: Present: as per HPI, frequent falls, other (poor short term memory ). Absent: abnormal gait, confusion, convulsions, disequilibrium, dizziness, focal weakness, headache(s), memory loss, numbness, paresthesias, radicular pain , tremor(s) - Psychiatric Psychiatric: Present: as per HPI, anxiety (history of anxiety), auditory hallucinations (last heard voiced 2 weeks ago), depression, difficulty concentrating, memory loss (poor short term memory). Absent: confusion, homicidal ideation, panic attacks, suicidal ideation, visual hallucinations - Endocrine Endocrine: Present: fatigue. Absent: cold intolerance, heat intolerance, polydipsia, polyphagia - Hematologic/Lymphatic Hematologic/Lymphatic: Absent: easy bleeding, easy bruising, lymphadenopathy Medical,Surgical,& Family Hx - Medical History Cardio: History of: Hypertension Psychological: History of: Anxiety Disorders, Depression, Schizophrenia Neurology: History of: Cerebrovascular Accident, Seizures HEENT: History of: Eye Problem (Reading Glasses/Cataracts), Dental Problems ( Partial Lower/Full Upper) Endocrine: History of: Diabetes Mellitus (NIDDM) Respiratory: History of: Respiratory Problems (SOB Occasionally; No Flu Vac- never has had) Gastrointestinal: History of: GERD, Hemorrhoids, GI Problems (Constipation) No history of: Polyps (?) Musculoskeletal: History of: Musculoskeletal Problems (Arthritis) Hematology: History of: Anemia (Years Ago) No history of: Blood Transfusion Reaction (With Childbirths) Other: No history of: Anesthesia Reactions, Cancer - Surgical History Cardiac Surgeries: Sugical HX of: Cardiac Catheterization (Negative) Neurologic Surgeries: Surgical HX of: Neurologic Surgery (Brain Tumor Removed 1996) HEENT Surgeries: Surgical HX of: Eye Surgery (12/28/15 Cataract Rt; 02/01/[address] Ren) Abdominal Surgeries: Surgical HX of: Abdominal Surgery, Colonoscopy Reproductive Surgeries: Surgical HX of;: Section (x3), Gynecologic Surgery Orthopedic Surgeries: Surgical HX of;: Orthopedic Surgery (CTR Rt/Lt) - Family History Family History: Denies;: Additional Family History - Social History Smoking Status: Former smoker Frequency of Alcohol Use: None Type of Drug Use: None Physical Examination Vital Signs Temp Pulse Resp BP Pulse Ox 97.2 F L 117 H 18 136/78 98 12/21/16 11:10 12/21/16 11:10 12/21/16 11:10 12/21/16 11:10 12/21/16 11:10 General: Present: Appears Well, No Apparent Distress HEENT: Present: Normocephaly, Mucus Membranes Moist Neck: Present: Supple Neck, Midline Trachea, No Masses, No Bruit Cardiac: Present: Reg Rate and Rhythm, No Murmur, Tachycardia Lungs: Present: Normal Exam, Normal Breath Sounds, No Wheeze, Rales, Rhonchi Neuro: Present: Grossly Intact. Absent: Resting Tremor, Essential Tremor Abdomen: Present: Soft, Active Bowel Sounds, Non-Tender Skin: Present: Clear. Absent: Rash Musculoskeletal: Present: No Fluid Collection, No Pain, Normal Range of Motion Extremities: Present: No Clubbing, No Cyanosis, No Edema, Normal Upper Extr. Pulses, Normal Lower Extr. Pulses Result/EKG - Labs CBC & BMP: 12/22/16 05:27 12/22/16 05:27 Lab Results: I have reviewed the past 24 hour labs Labs: Laboratory Results - last 24 hr 12/21/16 12/21/16 12/21/16 16:04 16:29 16:29 WBC 8.1 RBC 3.66 L Hgb 9.5 L Hct 30.0 L MCV 82.0 L MCH 26 L MCHC 31.7 L RDW 15.4 Plt Count 379 MPV 9.3 L Neut % (Auto) 55.4 Lymph % (Auto) 35.0 [place] % (Auto) 6.4 Eos % (Auto) 2.4 Baso % (Auto) 0.6 Neut # (Auto) 4.5 Lymph # (Auto) 2.8 [place] # (Auto) 0.5 Eos # (Auto) 0.2 Baso # (Auto) 0.1 Immature Gran % 0.2 Nucleated RBC % 0.0 Immature Gran # 0.02 Nucleated RBCs # 0.00 Anemia Panel Interp See comment ESR Westergren 77 H Absolute Retic 0.1 Percent Retic 1.8 H Retic Hgb Equivalent 28.7 Sodium Potassium Chloride Carbon Dioxide Anion Gap BUN Creatinine GFR Calculation BUN/Creatinine Ratio Glucose POC Glucose 127 H Hemoglobin A1c Calculated Osmolality Calcium Ferritin Total Bilirubin AST ALT Alkaline Phosphatase Troponin I < 0.015 Total Protein Albumin Globulin Albumin/Globulin Ratio 12/21/16 12/21/16 12/21/16 18:54 20:35 Unknown WBC RBC Hgb Hct MCV MCH MCHC RDW Plt Count MPV Neut % (Auto) Lymph % (Auto) [place] % (Auto) Eos % (Auto) Baso % (Auto) Neut # (Auto) Lymph # (Auto) [place] # (Auto) Eos # (Auto) Baso # (Auto) Immature Gran % Nucleated RBC % Immature Gran # Nucleated RBCs # Anemia Panel Interp ESR Westergren Absolute Retic Percent Retic Retic Hgb Equivalent Sodium Potassium Chloride Carbon Dioxide Anion Gap BUN Creatinine GFR Calculation BUN/Creatinine Ratio Glucose POC Glucose 208 H Hemoglobin A1c 10.0 H Calculated Osmolality Calcium Ferritin Total Bilirubin AST ALT Alkaline Phosphatase Troponin I < 0.015 Total Protein Albumin Globulin Albumin/Globulin Ratio 12/21/16 12/22/16 12/22/16 Unknown 00:31 01:21 WBC RBC Hgb Hct MCV MCH MCHC RDW Plt Count MPV Neut % (Auto) Lymph % (Auto) [place] % (Auto) Eos % (Auto) Baso % (Auto) Neut # (Auto) Lymph # (Auto) [place] # (Auto) Eos # (Auto) Baso # (Auto) Immature Gran % Nucleated RBC % Immature Gran # Nucleated RBCs # Anemia Panel Interp ESR Westergren Absolute Retic Percent Retic Retic Hgb Equivalent Sodium Potassium Chloride Carbon Dioxide Anion Gap BUN Creatinine GFR Calculation BUN/Creatinine Ratio Glucose POC Glucose 48 L* 132 H Hemoglobin A1c Calculated Osmolality Calcium Ferritin 33.4 Total Bilirubin AST ALT Alkaline Phosphatase Troponin I Total Protein Albumin Globulin Albumin/Globulin Ratio 12/22/16 12/22/16 12/22/16 05:27 05:27 05:27 WBC 8.0 RBC 3.75 L Hgb 9.6 L Hct 30.6 L MCV 81.6 L MCH 26 L MCHC 31.4 L RDW 15.5 Plt Count 399 MPV 9.5 L Neut % (Auto) 59.7 Lymph % (Auto) 31.0 [place] % (Auto) 5.9 Eos % (Auto) 2.5 Baso % (Auto) 0.7 Neut # (Auto) 4.8 Lymph # (Auto) 2.5 [place] # (Auto) 0.5 Eos # (Auto) 0.2 Baso # (Auto) 0.1 Immature Gran % 0.2 Nucleated RBC % 0.0 Immature Gran # 0.02 Nucleated RBCs # 0.00 Anemia Panel Interp ESR Westergren Absolute Retic Percent Retic Retic Hgb Equivalent Sodium 143 Potassium 4.2 Chloride 109 H Carbon Dioxide 24 Anion Gap 14.2 BUN 15 Creatinine 1.00 GFR Calculation 73 BUN/Creatinine Ratio 15.00 Glucose 204 H POC Glucose Hemoglobin A1c Calculated Osmolality 291.0 Calcium 9.1 Ferritin Total Bilirubin 0.40 AST 8 ALT 15 Alkaline Phosphatase 96 Troponin I < 0.015 Total Protein 7.0 Albumin 3.2 L Globulin 3.8 H Albumin/Globulin Ratio 0.8 L 12/22/16 07:38 WBC RBC Hgb Hct MCV MCH MCHC RDW Plt Count MPV Neut % (Auto) Lymph % (Auto) [place] % (Auto) Eos % (Auto) Baso % (Auto) Neut # (Auto) Lymph # (Auto) [place] # (Auto) Eos # (Auto) Baso # (Auto) Immature Gran % Nucleated RBC % Immature Gran # Nucleated RBCs # Anemia Panel Interp ESR Westergren Absolute Retic Percent Retic Retic Hgb Equivalent Sodium Potassium Chloride Carbon Dioxide Anion Gap BUN Creatinine GFR Calculation BUN/Creatinine Ratio Glucose POC Glucose 173 H Hemoglobin A1c Calculated Osmolality Calcium Ferritin Total Bilirubin AST ALT Alkaline Phosphatase Troponin I Total Protein Albumin Globulin Albumin/Globulin Ratio - Impressions Impressions: Her ECG was sinus rhythm with some nonspecific T-wave abnormalities but no ischemic changes. Her telemetry with normal sinus rhythm without abnormalities. - EKG EKG results: interpreted by me, sinus rhythm EKG shows: tachycardia (with nonspecific T-wave abnormalities) Specialty Discharge - Follow Up or Referrals Follow up with: Your, psychiatrist [Other] (1 week) Woodrow Flynn MD [Physician] - 5 Days Karthikeyan Alamo MD [Physician] - 2 Weeks (Follow up with Dr. Alamo in 2 weeks. ) I, Adriel Garcia MD, personally performed the services described in this documentation, ascribed by Leah Kaur RN in my presence, and it is both accurate and complete [id number] .
[2016-12-22] MEDS ORDERED: clonazePAM 0.5 MG TABLET PO SCH (21:00)
--- NOTE | 2016-12-23 08:11 | ECHO Report ---
Aggie Kasper Exam Date: 12/22/2016 09:06 Referring Physician: Technologist: Chemo SANCHEZ Age: 61 Ht (in): Wt (lb): Gender: F Exam Location: [facility] ([facility] Echo Indications: near syncope BP: / HR: Rhythm: Sinus Technical Quality: fair to good IMPRESSIONS 1. Left ventricle is normal size systolic function ejection fraction 55 to 60%. Heart rate is 100+ or minus. There is moderate concentric left ventricular hypertrophy and probably mild diastolic dysfunction. 2. Other cardiac chambers and all size and function. 3. Mildly thickened mitral valve with trace to mild regurgitation. 4. Mildly sclerotic aortic valve without Doppler abnormalities. 5. Other valvular structures are grossly normal. MEASUREMENTS (Male / Female) Normal Values 2D ECHO LV Diastolic Diameter PLAX 4.0 cm 4.2 - 5.9 / 3.9 - 5.3 cm LV Systolic Diameter PLAX 2.4 cm LV Fractional Shortening PLAX 41.3 % IVS Diastolic Thickness 1.7 cm 0.6 - 1.0 / 0.6 - 0.9 cm LVPW Diastolic Thickness 1.2 cm 0.6 - 1.0 / 0.6 - 0.9 cm RV Internal Dim ED PLAX 3.2 cm Aortic Root Diameter 2.6 cm LA Systolic Diameter LX 3.8 cm 3.0 - 4.0 / 2.7 - 3.8 cm DOPPLER TR Peak Velocity 187.0 cm/s TR Peak Gradient 14.0 mmHg FINDINGS Left Ventricle Left ventricle is normal size and normal systolic function ejection fraction 55-60%. There are no segmental wall motion modalities. There is moderate concentric left ventricular hypertrophy. Probably mild diastolic dysfunction. Right Ventricle Right ventricle is normal size systolic function. Right Atrium Right atrium is normal size. Left Atrium Normal left atrial size. Mitral Valve Mildly thickened mitral valve with trace to mild mitral regurgitation. Aortic Valve Aortic valve is a tricuspid structure with sclerosis without stenosis or regurgitation. Tricuspid Valve Morphologically normal tricuspid valve. Trace tricuspid valve regurgitation. Tricuspid regurgitation velocities suggest a PAP of 14.0 mmHg and estimated right ventricular peak systolic pressure of 19-24 mmHg.. Pulmonic Valve Morphologically normal pulmonic valve. Pericardium No pericardial effusion. Aorta Normal size aortic root and proximal ascending aorta. Adriel Garcia MD (Electronically Signed) Final Date: 22 December 2016 17:28
== END 2016-12-22 19:15 | disposition home health service (06) ==
LOC: N.ED 10:56 → N.EDINP 10:56 → N.2E 15:26
PROVIDERS: ADMIT Internal Medicine; ATTEND Internal Medicine

== ENCOUNTER 2021-02-23 15:20 | Inpatient (IN) ==
[2021-02-23 15:47] LABS: Basophils # 0.1 10*3/uL (0.0-0.2); Basophils % 0.8 % (0.0-0.8); Eosinophils # 0.2 10*3/uL (0.0-0.87); Eosinophils % 1.9 % (0.00-10.9); Hematocrit 31.7 VOL% (35.7-47.0); Hemoglobin 9.8 GM/DL (12.0-16.0); Immature Granulocytes % 0.6 %; Immature Granulocytes Absolute 0.05 #; Lymphocytes # 2.4 10*3/uL (1.4-4.0); Lymphocytes % 26.9 % (21.3-54.2); Mean Corpuscular HGB Conc 30.9 GM/DL (32-36); Mean Corpuscular Volume 86.1 FL (87-102); Mean Platelet Volume 8.9 FL (9.6-12.0); Neutrophils % 63.8 % (38.7-73.9); Platelet Count 464 T/CUMM (130-400); Red Blood Count 3.68 MC/CUMM (3.8-5.5); Red Cell Distribution Width 17.1 % (9.3-17.3)
[2021-02-23 16:18] LABS: Alanine Aminotransferase 16 U/L (13-56); Albumin 3.6 G/DL (3.4-5.0); Alkaline Phosphatase 77 U/L (45-117); Aspartate Amino Transferase 9 U/L (0-37); Bilirubin,Total < 0.39 MG/DL (0.2-1.0); Blood Urea Nitrogen 45 MG/DL (7-18); Calcium 9.4 MG/DL (8.5-10.1); Carbon Dioxide 19 MMOL/L (21-32); Estimated Glom Filtration Rate 26 ML/MIN; Glucose 345 MG/DL (74-106); Osmolality,Calculated 302.5 MOS/KG (273-304); Potassium 4.5 MMOL/L (3.5-5.1); Sodium 139 MMOL/L (136-145)
[2021-02-23] MEDS ORDERED: ASPIRIN 325 MG TABLET PO STA (16:54)
[2021-02-23] MEDS ORDERED: ENOXAPARIN 30 MG/0.3 ML SYRINGE SUBCUT STA (17:33)
[2021-02-23] MEDS ORDERED: ENOXAPARIN 100 MG/ML SYRINGE SUBCUT ONE (17:38)
[2021-02-23] MEDS ORDERED: NITROGLYCERIN SL 0.4 MG TABLET SL ONE (17:38)
[2021-02-23] MEDS ORDERED: NITROGLYCERIN SL 0.4 MG TABLET SL STA (17:43)
[2021-02-23] MEDS ORDERED: ACETAMINOPHEN 325 MG TABLET PO PRN (18:25)
[2021-02-23] MEDS ORDERED: GLUCAGON 1 MG VIAL IM PRN (18:25)
[2021-02-23] MEDS ORDERED: ONDANSETRON 4 MG/2 ML VIAL IV PRN (18:25)
[2021-02-23] MEDS ORDERED: MORPHINE 4 MG/1 ML VIAL IV PRN (18:25)
[2021-02-23] MEDS ORDERED: DEXTROSE 50% 25 GM/50 ML VIAL IV PRN ×2 (18:25)
[2021-02-23] MEDS: SODIUM CHLORIDE 0.45% 1,000 ML IV SCH (20:40)
[2021-02-23] MEDS ORDERED: hydrALAZINE 25 MG TABLET PO SCH (21:00)
[2021-02-23] MEDS: INSULIN REGULAR 100 UNIT/ML SUBCUT SCH (21:34)
[2021-02-23] MEDS: INSULIN GLARGINE 100 UNIT/ML SUBCUT SCH (21:40)
[2021-02-23] MEDS: SERTRALINE 25 MG TABLET PO SCH (21:44)
[2021-02-23] MEDS: GLIMEPIRIDE 4 MG TABLET PO SCH (21:44)
[2021-02-23] MEDS: OLANZapine 5 MG TABLET PO SCH (21:44)
[2021-02-23] MEDS: DOCUSATE SODIUM 100 MG CAPSULE PO SCH (21:44)
[2021-02-23] MEDS: OXcarbazepine 300 MG TABLET PO SCH (21:47)
[2021-02-23] MEDS: PREGABALIN 50 MG CAPSULE PO SCH (21:52)
[2021-02-23 22:29] LABS: Bilirubin,Urine Negative (Negative); Blood, Urine Negative (Negative); Glucose,Urine (UA) 150 mg/dL (Negative); Hyaline Casts,Urine 3 /LPF (0-3); Ketones,Urine Negative (Negative); Mucus,Urine Occasional /LPF (Occasional); Nitrite,Urine Negative (Negative); Protein,Urine 100 MG/DL; RBC,Urine <1 /HPF (0-4); Squamous Epithelial Cell,Urine Occasional /HPF (0-10); Urine Appearance CLEAR (Clear); Urine Color Yellow (Yellow); Urine Specific Gravity 1.015 (1.001-1.035); Urine Urobilinogen < 2.0 EU/DL (0.2-1.0); WBC,Urine 1 /HPF (0-6)
[2021-02-24 06:15] LABS: Basophils # 0.1 10*3/uL (0.0-0.2); Basophils % 0.8 % (0.0-0.8); Eosinophils # 0.2 10*3/uL (0.0-0.87); Eosinophils % 2.5 % (0.00-10.9); Hematocrit 28.2 VOL% (35.7-47.0); Hemoglobin 8.9 GM/DL (12.0-16.0); Immature Granulocytes % 0.4 %; Immature Granulocytes Absolute 0.03 #; Lymphocytes # 2.9 10*3/uL (1.4-4.0); Lymphocytes % 37.9 % (21.3-54.2); Mean Corpuscular HGB Conc 31.6 GM/DL (32-36); Mean Corpuscular Volume 85.2 FL (87-102); Mean Platelet Volume 9.3 FL (9.6-12.0); Monocytes % 6.8 % (1.7-12.7); Neutrophils % 51.6 % (38.7-73.9); Platelet Count 397 T/CUMM (130-400); Red Blood Count 3.31 MC/CUMM (3.8-5.5); White Blood Count 7.6 T/CUMM (4-12)
[2021-02-24 06:33] LABS: Risk Ratio 4.34; VLDL CHOLESTEROL 18.4 MG/DL
[2021-02-24 06:41] LABS: Calcium 8.7 MG/DL (8.5-10.1); Osmolality,Calculated 286.7 MOS/KG (273-304); Potassium 4.1 MMOL/L (3.5-5.1); Thyroid Stimulating Hormone 1.02 uIU/ml (0.358-3.74)
[2021-02-24] MEDS: INSULIN REGULAR 100 UNIT/ML SUBCUT SCH ×4 (07:38→21:41)
[2021-02-24] MEDS: ASPIRIN EC 325 MG TABLET PO SCH (08:59)
[2021-02-24] MEDS: PANTOPRAZOLE 40 MG TABLET PO SCH (09:00)
[2021-02-24] MEDS: lamoTRIgine 100 MG TABLET PO SCH (09:00)
[2021-02-24] MEDS: GLIMEPIRIDE 4 MG TABLET PO SCH ×2 (09:00→21:30)
[2021-02-24] MEDS: amLODIPine 10 MG TABLET PO SCH (09:00)
[2021-02-24] MEDS ORDERED: METOPROLOL SUCCINATE XL 50 MG TABLET PO SCH (09:00)
[2021-02-24] MEDS: DOCUSATE SODIUM 100 MG CAPSULE PO SCH ×2 (09:00→21:32)
[2021-02-24] MEDS: PREGABALIN 50 MG CAPSULE PO SCH (09:06)
[2021-02-24] MEDS ORDERED: NITROGLYCERIN SL 0.4 MG TABLET SL PRN (12:09)
[2021-02-24] MEDS ORDERED: ASPIRIN EC 81 MG TABLET PO SCH (12:30)
[2021-02-24] MEDS: SODIUM CHLORIDE 0.45% 1,000 ML IV SCH (20:40)
[2021-02-24] MEDS: OXcarbazepine 300 MG TABLET PO SCH (21:30)
[2021-02-24] MEDS: OLANZapine 5 MG TABLET PO SCH (21:31)
[2021-02-24] MEDS: SERTRALINE 25 MG TABLET PO SCH (21:32)
[2021-02-24] MEDS: ENOXAPARIN 100 MG/ML SYRINGE SUBCUT SCH (21:38)
[2021-02-24] MEDS: INSULIN GLARGINE 100 UNIT/ML SUBCUT SCH (21:42)
[2021-02-24] MEDS: GABAPENTIN 300 MG CAPSULE PO SCH (21:53)
[2021-02-25 05:42] LABS: Basophils # 0.1 10*3/uL (0.0-0.2); Eosinophils # 0.3 10*3/uL (0.0-0.87); Hematocrit 31.4 VOL% (35.7-47.0); Hemoglobin 9.8 GM/DL (12.0-16.0); Immature Granulocytes % 0.8 %; Immature Granulocytes Absolute 0.07 #; Lymphocytes # 3.1 10*3/uL (1.4-4.0); Lymphocytes % 33.5 % (21.3-54.2); Mean Corpuscular HGB Conc 31.2 GM/DL (32-36); Mean Corpuscular Volume 84.9 FL (87-102); Mean Platelet Volume 9.2 FL (9.6-12.0); Monocytes % 7.5 % (1.7-12.7); Neutrophils % 54.2 % (38.7-73.9); Platelet Count 475 T/CUMM (130-400); Red Cell Distribution Width 17.2 % (9.3-17.3); White Blood Count 9.1 T/CUMM (4-12)
[2021-02-25 06:47] LABS: Calcium 8.8 MG/DL (8.5-10.1); Osmolality,Calculated 286.5 MOS/KG (273-304); Potassium 4.6 MMOL/L (3.5-5.1)
[2021-02-25] MEDS ORDERED: METOPROLOL SUCCINATE XL 25 MG TABLET PO SCH (09:00)
[2021-02-25 09:03] LABS: Troponin I < 0.015 NG/ML (0.00-0.045)
[2021-02-25] MEDS: lamoTRIgine 100 MG TABLET PO SCH (09:08)
[2021-02-25] MEDS: ASPIRIN EC 325 MG TABLET PO SCH (09:08)
[2021-02-25] MEDS: GLIMEPIRIDE 4 MG TABLET PO SCH ×2 (09:08→21:52)
[2021-02-25] MEDS: DOCUSATE SODIUM 100 MG CAPSULE PO SCH ×2 (09:08→21:53)
[2021-02-25] MEDS: amLODIPine 10 MG TABLET PO SCH (09:09)
[2021-02-25] MEDS: GABAPENTIN 300 MG CAPSULE PO SCH ×3 (09:10→22:34)
[2021-02-25] MEDS: PANTOPRAZOLE 40 MG TABLET PO SCH (09:10)
[2021-02-25] MEDS: INSULIN REGULAR 100 UNIT/ML SUBCUT SCH ×4 (09:10→21:57)
[2021-02-25] MEDS: methylPREDNISolone 4 MG TABLET PO SCH (10:45)
[2021-02-25] MEDS: SODIUM CHLORIDE 0.45% 1,000 ML IV SCH ×3 (12:51→20:36)
[2021-02-25] MEDS: diphenhydrAMINE CAP 25 MG CAPSULE PO SCH ×3 (12:52→17:52)
[2021-02-25] MEDS: FAMOTIDINE 20 MG/2 ML VIAL IV SCH ×2 (12:58→21:54)
[2021-02-25] MEDS: ACETYLCYSTEINE 600 MG CAPSULE PO SCH ×2 (13:02→21:53)
[2021-02-25] MEDS: ENOXAPARIN 100 MG/ML SYRINGE SUBCUT SCH (18:56)
[2021-02-25] MEDS: OLANZapine 5 MG TABLET PO SCH (21:48)
[2021-02-25] MEDS: SERTRALINE 25 MG TABLET PO SCH (21:51)
[2021-02-25] MEDS: OXcarbazepine 300 MG TABLET PO SCH (21:52)
[2021-02-25] MEDS: INSULIN GLARGINE 100 UNIT/ML SUBCUT SCH (21:59)
[2021-02-26] MEDS: diphenhydrAMINE CAP 25 MG CAPSULE PO SCH ×5 (00:01→17:46)
[2021-02-26] MEDS: SODIUM CHLORIDE 0.45% 1,000 ML IV SCH (04:28)
[2021-02-26 06:06] LABS: Calcium 9.2 MG/DL (8.5-10.1); Osmolality,Calculated 280.7 MOS/KG (273-304); Potassium 4.2 MMOL/L (3.5-5.1)
[2021-02-26 06:15] LABS: Basophils # 0.1 10*3/uL (0.0-0.2); Basophils % 0.7 % (0.0-0.8); Eosinophils # 0.1 10*3/uL (0.0-0.87); Eosinophils % 1.3 % (0.00-10.9); Hematocrit 33.8 VOL% (35.7-47.0); Hemoglobin 10.4 GM/DL (12.0-16.0); Immature Granulocytes % 1.1 %; Immature Granulocytes Absolute 0.12 #; Lymphocytes # 3.4 10*3/uL (1.4-4.0); Lymphocytes % 30.4 % (21.3-54.2); Mean Corpuscular HGB Conc 30.8 GM/DL (32-36); Mean Corpuscular Volume 87.6 FL (87-102); Mean Platelet Volume 8.9 FL (9.6-12.0); Monocytes % 6.3 % (1.7-12.7); Neutrophils % 60.2 % (38.7-73.9); Platelet Count 421 T/CUMM (130-400); Red Blood Count 3.86 MC/CUMM (3.8-5.5); Red Cell Distribution Width 17.6 % (9.3-17.3)
[2021-02-26 06:49] LABS: Calcium 9.4 MG/DL (8.5-10.1); Osmolality,Calculated 281.7 MOS/KG (273-304); Potassium 4.5 MMOL/L (3.5-5.1)
[2021-02-26] MEDS: INSULIN REGULAR 100 UNIT/ML SUBCUT SCH ×4 (07:58→21:13)
[2021-02-26] MEDS: methylPREDNISolone 4 MG TABLET PO SCH (08:59)
[2021-02-26] MEDS: ASPIRIN EC 325 MG TABLET PO SCH (08:59)
[2021-02-26] MEDS: METOPROLOL SUCCINATE XL 100 MG TABLET PO SCH (09:00)
[2021-02-26] MEDS: ACETYLCYSTEINE 600 MG CAPSULE PO SCH ×2 (09:00→20:58)
[2021-02-26] MEDS: amLODIPine 10 MG TABLET PO SCH (09:00)
[2021-02-26] MEDS: GLIMEPIRIDE 4 MG TABLET PO SCH ×2 (09:03→20:58)
[2021-02-26] MEDS: FAMOTIDINE 20 MG/2 ML VIAL IV SCH (09:56)
[2021-02-26] MEDS ORDERED: HEPARIN/NACL 0.9% 2 UNITS/ML 2,000 UNIT/1,000 ML BAG IV ONE (09:57)
[2021-02-26] MEDS ORDERED: LIDOCAINE 1% 20 ML VIAL ONE (10:07)
[2021-02-26] MEDS ORDERED: LIDOCAINE 1%/EPI INJ 20 ML VIAL ONE (10:08)
[2021-02-26] MEDS ORDERED: DIAZEPAM 5 MG TABLET PO ONE (10:30)
[2021-02-26] MEDS ORDERED: diphenhydrAMINE CAP 25 MG CAPSULE PO ONE (10:30)
[2021-02-26] MEDS ORDERED: fentaNYL 100 MCG/2 ML VIAL ONE (11:10)
[2021-02-26] MEDS ORDERED: MIDAZOLAM 2 MG/2 ML VIAL ONE (11:10)
[2021-02-26] MEDS: GABAPENTIN 300 MG CAPSULE PO SCH ×3 (12:43→20:57)
[2021-02-26] MEDS: lamoTRIgine 100 MG TABLET PO SCH (14:31)
[2021-02-26] MEDS: DOCUSATE SODIUM 100 MG CAPSULE PO SCH ×2 (14:31→21:00)
[2021-02-26] MEDS: OLANZapine 5 MG TABLET PO SCH (20:58)
[2021-02-26] MEDS: OXcarbazepine 300 MG TABLET PO SCH (20:59)
[2021-02-26] MEDS: SERTRALINE 25 MG TABLET PO SCH (21:00)
[2021-02-26] MEDS: INSULIN GLARGINE 100 UNIT/ML SUBCUT SCH (21:10)
[2021-02-27 05:34] LABS: Basophils # 0.1 10*3/uL (0.0-0.2); Basophils % 0.6 % (0.0-0.8); Eosinophils # 0.2 10*3/uL (0.0-0.87); Eosinophils % 1.6 % (0.00-10.9); Hemoglobin 9.5 GM/DL (12.0-16.0); Immature Granulocytes % 0.5 %; Immature Granulocytes Absolute 0.05 #; Lymphocytes % 31.7 % (21.3-54.2); Mean Corpuscular HGB Conc 30.6 GM/DL (32-36); Mean Corpuscular Volume 86.6 FL (87-102); Mean Platelet Volume 8.7 FL (9.6-12.0); Monocytes % 8.7 % (1.7-12.7); Neutrophils % 56.9 % (38.7-73.9); Platelet Count 445 T/CUMM (130-400); Red Blood Count 3.58 MC/CUMM (3.8-5.5); Red Cell Distribution Width 17.2 % (9.3-17.3); White Blood Count 9.6 T/CUMM (4-12)
[2021-02-27 05:57] LABS: Calcium 8.8 MG/DL (8.5-10.1); Osmolality,Calculated 289.3 MOS/KG (273-304); Potassium 3.9 MMOL/L (3.5-5.1)
[2021-02-27 06:00] LABS: Osmolality,Calculated 288.3 MOS/KG (273-304); Potassium 3.9 MMOL/L (3.5-5.1)
[2021-02-27] MEDS ORDERED: ASPIRIN EC 81 MG TABLET PO SCH (09:00)
[2021-02-27] MEDS: SODIUM CHLORIDE 0.45% 1,000 ML IV SCH (09:28)
[2021-02-27] MEDS: INSULIN REGULAR 100 UNIT/ML SUBCUT SCH ×2 (09:28→12:03)
[2021-02-27] MEDS: amLODIPine 10 MG TABLET PO SCH (10:23)
[2021-02-27] MEDS: METOPROLOL SUCCINATE XL 100 MG TABLET PO SCH (10:23)
[2021-02-27] MEDS: lamoTRIgine 100 MG TABLET PO SCH (10:24)
[2021-02-27] MEDS: ACETYLCYSTEINE 600 MG CAPSULE PO SCH (10:24)
[2021-02-27] MEDS: GABAPENTIN 300 MG CAPSULE PO SCH (10:24)
[2021-02-27] MEDS: GLIMEPIRIDE 4 MG TABLET PO SCH (10:25)
[2021-02-27] MEDS: DOCUSATE SODIUM 100 MG CAPSULE PO SCH (10:26)
[2021-02-27 12:07] VITALS: BP 133/76
[2021-02-27] MEDS ORDERED: ROSUVASTATIN 20 MG TABLET PO SCH (21:00)
[2021-02-28] MEDS ORDERED: METOPROLOL SUCCINATE XL 100 MG TABLET PO SCH (09:00)
== END 2021-02-27 13:37 | disposition home or self-care (01) | DRG 287 ==
LOC: N.ED 15:20 → N.EDINP 15:20 → N.TELES 19:27
PROVIDERS: ADMIT Hospitalist; ATTEND Hospitalist
PROC: CLCCHCL (ICD-10-PCS; 2021-02-26 11:45)

== ENCOUNTER 2022-09-09 09:28 | Observation (INO) ==
[2022-09-09] MEDS ORDERED: SODIUM CHLORIDE 0.9% 500 ML IV STA ×2 (10:12→11:27)
[2022-09-09 10:50] LABS: Basophils # 0.1 10*3/uL (0.0-0.2); Basophils % 0.8 % (0.0-0.8); Eosinophils # 0.1 10*3/uL (0.0-0.87); Eosinophils % 1.4 % (0.00-10.9); Hematocrit 31.6 VOL% (35.7-47.0); Hemoglobin 9.6 GM/DL (12.0-16.0); Immature Granulocytes % 0.3 %; Immature Granulocytes Absolute 0.02 #; Lymphocytes # 1.9 10*3/uL (1.4-4.0); Lymphocytes % 25.3 % (21.3-54.2); Mean Corpuscular HGB Conc 30.4 GM/DL (32-36); Mean Corpuscular Volume 89.8 FL (87-102); Monocytes # 0.6 10*3/uL (0.11-0.8); Monocytes % 7.3 % (1.7-12.7); Neutrophils % 64.9 % (38.7-73.9); Platelet Count 329 T/CUMM (130-400); Red Blood Count 3.52 MC/CUMM (3.8-5.5); Red Cell Distribution Width 15.9 % (9.3-17.3); White Blood Count 7.6 T/CUMM (4-12)
[2022-09-09] MEDS ORDERED: ASPIRIN 325 MG TABLET PO STA (11:01)
[2022-09-09 11:02] LABS: INR 1.7; PT Patient Result 18.1 SECS (10.1-12.1)
[2022-09-09 11:12] LABS: Alanine Aminotransferase 21 U/L (13-56); Albumin 3.8 G/DL (3.4-5.0); Alkaline Phosphatase 85 U/L (45-117); Aspartate Amino Transferase 13 U/L (0-37); Bilirubin,Total < 0.39 MG/DL (0.20-1.00); Blood Urea Nitrogen 37 MG/DL (7-18); Carbon Dioxide 24 MMOL/L (21-32); Chloride 111 MMOL/L (98-107); Glucose 166 MG/DL (74-106); Osmolality,Calculated 293.3 MOS/KG (273-304); Potassium 5.1 MMOL/L (3.5-5.1); Sodium 141 MMOL/L (136-145); Total Protein 7.4 G/DL (6.4-8.2)
[2022-09-09 12:43] LABS: Bilirubin,Urine Negative (Negative); Blood, Urine Negative (Negative); Glucose,Urine (UA) Negative (Negative); Ketones,Urine Negative (Negative); Mucus,Urine Occasional /LPF (Occasional); Nitrite,Urine Negative (Negative); Protein,Urine 100 mg/dL (Negative); RBC,Urine <1 /HPF (0-4); Squamous Epithelial Cell,Urine Occasional /HPF (0-10); Urine Appearance CLEAR (Clear); Urine Color Yellow (Yellow); Urine Specific Gravity 1.011 (1.001-1.035); Urine Urobilinogen < 2.0 eU/dL (<2.0)
[2022-09-09] MEDS ORDERED: ONDANSETRON 4 MG/2 ML VIAL IV PRN (14:01)
[2022-09-09] MEDS ORDERED: GLUCAGON 1 MG VIAL IM PRN (14:01)
[2022-09-09] MEDS ORDERED: DEXTROSE 10% 250 ML BAG IV PRN (14:16)
[2022-09-09] MEDS ORDERED: ACETAMINOPHEN 325 MG TABLET PO PRN (15:52)
[2022-09-09] MEDS ORDERED: traMADol 50 MG TABLET PO PRN (15:52)
[2022-09-09] MEDS ORDERED: ALBUTEROL 2.5 MG/3 ML NEB RESP TX PRN (15:52)
[2022-09-09] MEDS ORDERED: NITROGLYCERIN SL 0.4 MG TABLET SL PRN (15:52)
[2022-09-09] MEDS: SODIUM CHLORIDE 0.9% 1,000 ML IV SCH (16:35)
[2022-09-09] MEDS: BENZTROPINE 1 MG TABLET PO SCH (18:07)
[2022-09-09] MEDS ORDERED: NON-FORMULARY MEDICATION (Liraglutide [Victoza 3-Pak] 0.6 mg/0.1 mL (18 mg/3 mL) Pen Injec SUBCUT SCH (21:00)
[2022-09-09] MEDS: HEPARIN 5,000 UNIT/1 ML VIAL SUBCUT SCH (21:57)
[2022-09-09] MEDS: GLIMEPIRIDE 4 MG TABLET PO SCH (21:57)
[2022-09-09] MEDS: OLANZapine 5 MG TABLET PO SCH (21:57)
[2022-09-09] MEDS: DOCUSATE SODIUM 100 MG CAPSULE PO SCH (21:57)
[2022-09-09] MEDS: OXcarbazepine 300 MG TABLET PO SCH (21:58)
[2022-09-09] MEDS: ROSUVASTATIN 20 MG TABLET PO SCH (21:58)
[2022-09-09] MEDS: GABAPENTIN 300 MG CAPSULE PO SCH (21:58)
[2022-09-09] MEDS: SERTRALINE 25 MG TABLET PO SCH (21:58)
[2022-09-10] MEDS: SODIUM CHLORIDE 0.9% 1,000 ML IV SCH ×2 (00:45→07:25)
[2022-09-10 04:37] LABS: Basophils # 0.1 10*3/uL (0.0-0.2); Basophils % 0.7 % (0.0-0.8); Eosinophils # 0.1 10*3/uL (0.0-0.87); Eosinophils % 2.1 % (0.00-10.9); Immature Granulocytes % 0.3 %; Immature Granulocytes Absolute 0.02 #; Mean Corpuscular Volume 88.7 FL (87-102); Monocytes # 0.5 10*3/uL (0.11-0.8); Monocytes % 7.6 % (1.7-12.7); Neutrophils % 59.3 % (38.7-73.9); Platelet Count 292 T/CUMM (130-400); Red Blood Count 3.27 MC/CUMM (3.8-5.5); Red Cell Distribution Width 15.9 % (9.3-17.3); White Blood Count 6.7 T/CUMM (4-12)
[2022-09-10 05:02] LABS: Alanine Aminotransferase 17 U/L (13-56); Albumin 3.2 G/DL (3.4-5.0); Alkaline Phosphatase 78 U/L (45-117); Aspartate Amino Transferase 9 U/L (0-37); Bilirubin,Total < 0.39 MG/DL (0.20-1.00); Blood Urea Nitrogen 29 MG/DL (7-18); Calcium 9.1 MG/DL (8.5-10.1); Carbon Dioxide 23 MMOL/L (21-32); Chloride 113 MMOL/L (98-107); Glucose 138 MG/DL (74-106); Osmolality,Calculated 290.1 MOS/KG (273-304); Potassium 4.4 MMOL/L (3.5-5.1); Sodium 142 MMOL/L (136-145); Total Protein 6.9 G/DL (6.4-8.2)
[2022-09-10] MEDS: METOPROLOL SUCCINATE XL 100 MG TABLET PO SCH (09:00)
[2022-09-10] MEDS: DOCUSATE SODIUM 100 MG CAPSULE PO SCH ×2 (09:00→21:32)
[2022-09-10] MEDS: amLODIPine 10 MG TABLET PO SCH (09:00)
[2022-09-10] MEDS ORDERED: cloNIDine 0.1 MG TABLET PO SCH (09:00)
[2022-09-10] MEDS: FERROUS SULFATE 325 MG TABLET PO SCH (09:00)
[2022-09-10] MEDS: GABAPENTIN 300 MG CAPSULE PO SCH ×3 (09:00→21:32)
[2022-09-10] MEDS: GLIMEPIRIDE 4 MG TABLET PO SCH ×2 (09:00→21:31)
[2022-09-10] MEDS: ASPIRIN EC 81 MG TABLET PO SCH (09:01)
[2022-09-10] MEDS: PANTOPRAZOLE 40 MG TABLET PO SCH (09:01)
[2022-09-10] MEDS: BENZTROPINE 1 MG TABLET PO SCH ×2 (09:01→21:32)
[2022-09-10] MEDS: lamoTRIgine 100 MG TABLET PO SCH (09:02)
[2022-09-10] MEDS: HEPARIN 5,000 UNIT/1 ML VIAL SUBCUT SCH ×2 (09:14→21:30)
[2022-09-10] MEDS ORDERED: LORazepam 2 MG/1 ML VIAL IV PRN (18:40)
[2022-09-10] MEDS: cloNIDine 0.1 MG TABLET PO SCH (21:30)
[2022-09-10] MEDS: ROSUVASTATIN 20 MG TABLET PO SCH (21:31)
[2022-09-10] MEDS: OLANZapine 5 MG TABLET PO SCH (21:31)
[2022-09-10] MEDS: OXcarbazepine 300 MG TABLET PO SCH (21:31)
[2022-09-10] MEDS: SERTRALINE 25 MG TABLET PO SCH (21:32)
[2022-09-11 05:56] LABS: Basophils # 0.1 10*3/uL (0.0-0.2); Eosinophils # 0.2 10*3/uL (0.0-0.87); Eosinophils % 3.1 % (0.00-10.9); Hematocrit 30.9 VOL% (35.7-47.0); Hemoglobin 9.3 GM/DL (12.0-16.0); Immature Granulocytes % 0.3 %; Immature Granulocytes Absolute 0.02 #; Lymphocytes # 2.2 10*3/uL (1.4-4.0); Lymphocytes % 36.2 % (21.3-54.2); Mean Corpuscular HGB Conc 30.1 GM/DL (32-36); Mean Corpuscular Volume 90.6 FL (87-102); Mean Platelet Volume 9.7 FL (9.6-12.0); Monocytes # 0.5 10*3/uL (0.11-0.8); Monocytes % 8.8 % (1.7-12.7); Neutrophils % 50.6 % (38.7-73.9); Platelet Count 313 T/CUMM (130-400); Red Blood Count 3.41 MC/CUMM (3.8-5.5); Red Cell Distribution Width 15.9 % (9.3-17.3); White Blood Count 6.2 T/CUMM (4-12)
[2022-09-11 06:28] LABS: Alanine Aminotransferase 17 U/L (13-56); Albumin 3.4 G/DL (3.4-5.0); Alkaline Phosphatase 82 U/L (45-117); Aspartate Amino Transferase 10 U/L (0-37); Bilirubin,Total < 0.39 MG/DL (0.20-1.00); Blood Urea Nitrogen 23 MG/DL (7-18); Carbon Dioxide 23 MMOL/L (21-32); Chloride 117 MMOL/L (98-107); Glucose 89 MG/DL (74-106); Osmolality,Calculated 290.7 MOS/KG (273-304); Potassium 4.4 MMOL/L (3.5-5.1); Sodium 145 MMOL/L (136-145); Total Protein 7.4 G/DL (6.4-8.2)
[2022-09-11 08:16] VITALS: BP 182/71
[2022-09-11] MEDS: METOPROLOL SUCCINATE XL 100 MG TABLET PO SCH (09:29)
[2022-09-11] MEDS: PANTOPRAZOLE 40 MG TABLET PO SCH (09:29)
[2022-09-11] MEDS: cloNIDine 0.1 MG TABLET PO SCH (09:29)
[2022-09-11] MEDS: GABAPENTIN 300 MG CAPSULE PO SCH (09:29)
[2022-09-11] MEDS: ASPIRIN EC 81 MG TABLET PO SCH (09:29)
[2022-09-11] MEDS: lamoTRIgine 100 MG TABLET PO SCH (09:30)
[2022-09-11] MEDS: BENZTROPINE 1 MG TABLET PO SCH (09:30)
[2022-09-11] MEDS: FERROUS SULFATE 325 MG TABLET PO SCH (09:30)
[2022-09-11] MEDS: amLODIPine 10 MG TABLET PO SCH (09:30)
[2022-09-11] MEDS: GLIMEPIRIDE 4 MG TABLET PO SCH (09:30)
[2022-09-11] MEDS: HEPARIN 5,000 UNIT/1 ML VIAL SUBCUT SCH (09:31)
[2022-09-11] MEDS: DOCUSATE SODIUM 100 MG CAPSULE PO SCH (09:31)
== END 2022-09-11 12:49 | disposition home or self-care (01) ==
LOC: N.EDINP 09:28 → N.ED 09:28 → N.5E 17:40
PROVIDERS: ADMIT Family Medicine; ATTEND Family Medicine